=== PATIENT | female | born 1985 | race Caucasian/White ===

== ENCOUNTER 2017-06-25 11:22 | Emergency (ER) | payer MEDICAID ==
[~2017-06-25] VITALS: Ht 154.9 cm; Wt 95.8 kg
[~2017-06-25 11:22] MED LIST: IBUP-974 PO; PREN-385 PO
[2017-06-25 11:27] VITALS: BP 118/72
--- NOTE | 2017-06-25 11:35 | NUR ---
pt to bed 12 at this time. Ambulated w/ steady gait.
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
--- NOTE | 2017-06-25 12:16 | NUR ---
Ultrasound at bedside.
--- NOTE | 2017-06-25 12:35 | NUR ---
ULTRASOUND LEAVING PT BEDSIDE AT THIS TIME.
[2017-06-25 13:19] VITALS: BP 116/74
--- NOTE | 2017-06-25 13:19 | NUR ---
Patient discharged with v/s stable. Written and verbal after care instructions given and explained. Patient verbalized understanding. Ambulatory with steady gait. All questions addressed prior to discharge. Advised to follow up with PMD.
== END 2017-06-25 13:19 | disposition home or self-care (01) ==
LOC: MED 11:22
DX: O9A.212 Injury, poisoning and certain other consequences of external causes complicating pregnancy, second trimester (principal); S29.012A Strain of muscle and tendon of back wall of thorax, initial encounter; S39.81XA Other specified injuries of abdomen, initial encounter; Z3A.15 15 weeks gestation of pregnancy; V49.49XA Driver injured in collision with other motor vehicles in traffic accident, initial encounter; Y93.89 Activity, other specified; Y92.413 State road as the place of occurrence of the external cause; Y99.8 Other external cause status
CPT/HCPCS: 76805; 81002; 81025; 99284; Q0092

== ENCOUNTER 2021-09-08 16:30 | Emergency (ER) | payer MEDICAID ==
[~2021-09-08] VITALS: Ht 154.9 cm; Wt 97.5 kg
[2021-09-08 17:12] VITALS: BP 127/50
[2021-09-08] MEDS ORDERED: KETOROLAC 30 MG/ML VIAL IM ONE (18:25)
[2021-09-08 18:52] LABS: BASOPHILS # (AUTO) 0.1 K/uL (0.00-0.22); BASOPHILS % (AUTO) 0.9 % (0.0-2.0); EOSINOPHILS # (AUTO) 0.3 K/uL (0-0.4); EOSINOPHILS % (AUTO) 2.8 % (0.0-4.0); HEMATOCRIT 31.5 % (36-48); HEMOGLOBIN 9.7 g/dL (12.0-16.0); LYMPHOCYTES % (AUTO) 32.4 % (20.5-51.1); MEAN CORPUSCULAR HEMOGLOBIN 19 pg (27-31); MEAN CORPUSCULAR HGB CONC 31 g/dL (33-37); MEAN CORPUSCULAR VOLUME 60.6 fL (80-94); MONOCYTES # (AUTO) 0.7 K/uL (0.8-1.0); MONOCYTES % (AUTO) 7.3 % (1.7-9.3); NEUTROPHILS # (AUTO) 5.3 K/uL (1.8-7.7); NEUTROPHILS % (AUTO) 56.6 % (42.2-75.2); PLATELET COUNT (AUTO) 325 K/uL (140-450); RED CELL DISTRIBUTION WIDTH 20.9 % (11.6-13.7); WHITE BLOOD COUNT (AUTO) 9.4 K/uL (4.8-10.8)
[2021-09-08 18:59] LABS: APPEARANCE,URINE CLEAR (CLEAR); BILIRUBIN,URINE NEGATIVE (NEGATIVE); BLOOD, URINE 1+ (NEGATIVE); COLOR,URINE YELLOW (YELLOW); LEUKOCYTE ESTERASE ,URINE NEGATIVE (NEGATIVE); NITRITE, URINE NEGATIVE (NEGATIVE); UGLUCOSE NEGATIVE (NEGATIVE)
--- NOTE | 2021-09-08 19:15 | NUR ---
35 y/o female, c/o pelvic pain for 5 days. pt denies dysuria, hematuria, vaginal discharge. skin is pink/warm/dry. a&o x4, english speaking, with even and steady gait. lungs clear bl, heart rate even and regular. pt denies any fever, cp, sob, or cough at this time. pt states pain is 8/10 at this time. ermd made aware of pt. pmh: denies nka med: denies
[2021-09-08 19:23] LABS: ALBUMIN 3.7 g/dL (3.4-5.0); ANION GAP 11.4 (8-16); CARBON DIOXIDE 26.1 mmol/L (21-32); CREATININE 0.8 mg/dL (0.6-1.3); POTASSIUM 3.5 mmol/L (3.5-5.1); TOTAL BILIRUBIN 0.4 mg/dL (0.0-1.0)
[2021-09-08 19:43] LABS: WBC,URINE 0-5 /HPF (0-5)
[2021-09-08] MEDS ORDERED: NAPR-54 PO (20:20)
[2021-09-08] MEDS ORDERED: LID5T TP (20:20)
[2021-09-08] MEDS ORDERED: KETOROLAC 30 MG/ML VIAL ONE (20:44)
[2021-09-08 21:01] VITALS: BP 132/54
--- NOTE | 2021-09-08 21:01 | NUR ---
Patient discharged with v/s stable. Written and verbal after care instructions given and explained. Patient alert, oriented and verbalized understanding of instructions. Ambulatory with steady gait. All questions addressed prior to discharge. ID band removed. Patient advised to follow up with PMD. Rx of LIDODERM 5% PATCH AND NAPROSYN given. Patient educated on indication of medication including possible reaction and side effects. Opportunity to ask questions provided and answered. VSS, A/OX4, AMBULATORY, UNLABORED BREATHING, AND CALM DEMEANOR.
== END 2021-09-08 21:01 | disposition home or self-care (01) ==
LOC: MED 16:30
DX: R10.2 Pelvic and perineal pain (principal); R03.0 Elevated blood-pressure reading, without diagnosis of hypertension; Z79.899 Other long term (current) drug therapy; Z98.890 Other specified postprocedural states
CPT/HCPCS: 36415; 76856; 80053; 81001; 81025; 83690; 85025; 93976; 96372; 99284; J1885; Q0092